=== PATIENT | male | born 1990 | race Caucasian/White ===

== ENCOUNTER 2018-01-16 02:00 | Emergency (ER) | payer SELFPAY ==
[~2018-01-16] VITALS: Ht 180.3 cm; Wt 66.7 kg
--- NOTE | 2018-01-16 02:25 | PHYS DOC ---
Past Medical History Past Medical History: No Pertinent History Smoking: Cigarettes Drug Use: Methamphetamine Adult General Chief Complaint Chief Complaint: COUGH HPI HPI Patient is a 27-year-old male who presents to the emergency department for evaluation. He states the past 5 or 6 days, he has had nasal congestion, and a nonproductive cough. He denies any shortness of breath or any pain. He has not had any otalgia, and denies any sore throat. He has not had any fevers or chills. He states he uses methamphetamines heavily, but has not used since Friday since and rehabilitation. He denies any other complaints at this time. There are no alleviating, or exacerbating factors to his symptoms. Review of Systems Review of Systems Constitutional: Denies fever or chills [] Eyes: Denies change in visual acuity, redness, or eye pain [] HENT: Reports nasal congestion and sore throat [] Respiratory: Denies pleuritic pain or shortness of breath [] Cardiovascular: The patient denies any shortness of breath, chest pain, palpitations, or orthopnea [] GI: Denies abdominal pain, nausea, vomiting, bloody stools or diarrhea [] : Denies dysuria or hematuria [] Musculoskeletal: Denies back pain or joint pain [] Integument: Denies rash or skin lesions [] Neurologic: Denies headache, focal weakness or sensory changes [] Endocrine: Denies polyuria or polydipsia [] All other systems were reviewed and found to be within normal limits, except as documented in this note. Allergies Allergies Allergies Coded Allergies Type Severity Reaction Last Updated Verified No Known Drug Allergies 01/16/18 No Physical Exam Physical Exam PHYSICAL EXAM: CONSTITUTIONAL: Well developed, well nourished HEAD: normocephalic, atraumatic EENT: PERRL, EOMI. Conjunctivae normal color, sclerae non-icteric; moist mucous membranes. The tympanic membranes are normal bilaterally. The oropharynx is nonerythematous. The uvula is midline. There is no exudate. There is no significant mandibular lymphadenopathy. Mild nasal congestion is present. There is a nonproductive cough. NECK: Supple, non-tender; no meningismus. LUNGS: Lungs CTA, breathing even and unlabored. Normal air movement. HEART: Regular rate and rhythm, no murmur CHEST: No deformity; non-tender ABDOMEN: The abdomen is soft, and non-tender, no masses or bruits. EXTREM: Normal ROM; no deformity, no calf tenderness. Normal pulses palpable in all extremities. There is no pedal edema. SKIN: No rash; no diaphoresis NEURO: Alert; normal speech and cognition; CN's grossly intact; strength grossly intact without focal deficit. BACK: No CVA TTP. EKG EKG [] Radiology/Procedures Radiology/Procedures [ER physician preliminary chest x-ray interpretation: No acute disease.] Course & Med Decision Making Course & Med Decision Making Pertinent Imaging studies reviewed. (See chart for details) [Patient remains stable. I discussed test results, the need for close follow-up , and return precautions.] Dragon Disclaimer Dragon Disclaimer This electronic medical record was generated, in whole or in part, using a voice recognition dictation system. Departure Departure Impression: Primary Impression: Upper respiratory infection Disposition: HOME, SELF-CARE Condition: STABLE Patient Instructions: Cough, Adult, Upper Respiratory Infection, Adult Scripts Benzonatate (TESSALON PERLE) 100 Mg Capsule 100 MG PO TID PRN for COUGH, #30 CAP Prov: PATY NY MD 01/16/18 PATY NY MD Jan 16, 2018 02:25
[2018-01-16] MEDS ORDERED: BENZ100C PO (02:48)
[2018-01-16 03:07] VITALS: BP 120/76
--- NOTE | 2018-01-16 04:43 | RAD ---
PA and lateral chest x-ray HISTORY: Cough FINDINGS: Heart size normal. Mediastinal silhouette is normal. Mild calcification along the right lung apex. No pneumothorax, pulmonary opacities or pleural effusions. Bones are unremarkable. IMPRESSION: No acute process. Electronically signed by: Salomon Hagen MD (01/16/2018 4:40 AM) [id number]
== END 2018-01-16 03:10 | disposition home or self-care (01) ==
LOC: ER 02:00
DX: J06.9 Acute upper respiratory infection, unspecified (principal); F17.210 Nicotine dependence, cigarettes, uncomplicated
CPT/HCPCS: 71046; 99284